=== PATIENT | male | born 1975 | race Two or more races ===

== ENCOUNTER 2018-11-06 08:58 | Emergency (ER) | payer SELFPAY ==
[~2018-11-06] VITALS: Ht 165.1 cm; Wt 77.1 kg
[~2018-11-06 08:58] MED LIST: OMEP20CA74 OR
[2018-11-06 09:12] VITALS: BP 138/81
[2018-11-06] MEDS ORDERED: IBUPROFEN 800 MG TAB PO ONE (09:30)
== END 2018-11-06 09:58 | disposition home or self-care (01) ==
LOC: ER 08:58
DX: S46.912A Strain of unspecified muscle, fascia and tendon at shoulder and upper arm level, left arm, initial encounter (principal); Z90.49 Acquired absence of other specified parts of digestive tract; V43.52XA Car driver injured in collision with other type car in traffic accident, initial encounter; Y93.89 Activity, other specified; Y99.8 Other external cause status; Y92.410 Unspecified street and highway as the place of occurrence of the external cause
CPT/HCPCS: 73030